=== PATIENT | female | born 1935 | race Caucasian/White ===

== ENCOUNTER 2017-09-23 13:07 | Emergency (ER) | payer MEDICARE ==
[~2017-09-23] VITALS: Ht 167.6 cm; Wt 54.4 kg
--- NOTE | 2017-09-23 13:51 | RAD ---
EXAM: Head CT without contrast. HISTORY: Confusion. TECHNIQUE: Computed tomographic images of the head were obtained without contrast. *One or more of the following individualized dose reduction techniques were utilized for this examination: 1. Automated exposure control. 2. Adjustment of the mA and/or kV according to patient size. 3. Use of iterative reconstruction technique. COMPARISON: None. FINDINGS: There is no acute or subacute extra-axial or intraparenchymal hemorrhage. There is no mass effect or midline shift. There is no hydrocephalus. There are areas of decreased attenuation within the cerebral white matter, nonspecific and likely related to chronic small vessel disease. The visualized portions of the orbits, paranasal sinuses and mastoid air cells are unremarkable. No suspicious calvarial lesion is seen. IMPRESSION: No acute intracranial findings. Electronically signed by: Dariela Ashraf MD (09/23/2017 1:48 PM) [place] [id number]
--- NOTE | 2017-09-23 13:53 | RAD ---
PORTABLE CHEST 1V History: CONFUSED EARLIER NOW CORRECT MENTAL STATUS. Comparison: None. Findings: Cardiomediastinal silhouette is within normal limits. No focal airspace consolidation. No pneumothorax identified. No evidence of pleural effusion. Impression: No evidence of active disease in the chest. Electronically signed by: Balbir Gould MD (09/23/2017 1:49 PM) [id number]
[2017-09-23 14:09] LABS: BASO % 1 % (0-3); EOS # 0.1 x10^3/uL (0.0-0.7); EOS % 3 % (0-3); HEMATOCRIT 39.5 % (36.0-47.0); HEMOGLOBIN 13.5 g/dL (12.0-15.5); LYMPH # 1.3 x10^3/uL (1.0-4.8); LYMPH % 34 % (24-48); MEAN CORPUSCULAR HEMOGLOBIN 33 pg (25-35); MEAN CORPUSCULAR HGB CONC 34 g/dL (31-37); MEAN CORPUSCULAR VOLUME 98 fL (79-100); MONO # 0.3 x10^3/uL (0.0-1.1); MONO % 8 % (0-9); NEUT # 2.1 x10^3uL (1.8-7.7); NEUT % 54 % (31-73); PLATELET COUNT 201 x10^3/uL (140-400); RED BLOOD COUNT 4.04 x10^6/uL (3.50-5.40); RED CELL DISTRIBUTION WIDTH 13.5 % (11.5-14.5); WHITE BLOOD COUNT 3.8 x10^3/uL (4.0-11.0)
[2017-09-23 14:33] LABS: ALBUMIN 4.1 g/dL (3.4-5.0); ALBUMIN/GLOBULIN RATIO 1.2 (1.0-1.7); CALCIUM 9.7 mg/dL (8.5-10.1); CREATININE 0.7 mg/dL (0.6-1.0); GFR 80.3; MAGNESIUM 2.1 mg/dL (1.8-2.4); POTASSIUM 3.9 mmol/L (3.5-5.1); TOTAL BILIRUBIN 0.4 mg/dL (0.2-1.0); TOTAL PROTEIN 7.4 g/dL (6.4-8.2)
--- NOTE | 2017-09-23 14:35 | EKG ---
[address] [address] Test Date: 2017-09-23 Test Time: 13:24:55 Pat Name: АЛЕКСАНДР EARL Department: Room: Gender: F [employer] C[employer] Operator: : [id number] Requested By: BRUCE KIM Order Number: [id number] Reading MD: Ezio Mccarty MD Measurements Intervals [place] Rate: 68 P: 22 AR: 188 QRS: 6 QRSD: 78 T: 26 QT: 390 QTc: 419 Interpretive Statements SINUS RHYTHM Electronically Signed On 09-27-2017 17:12:31 [employer] RECOVERY OPERATOR by Ezio Mccarty MD
[2017-09-23 14:44] LABS: BACTERIA,URINE 0 /HPF (0-FEW); BILIRUBIN,URINE NEG (NEG); CLARITY,URINE CLEAR; COLOR,URINE YELLOW; GLUCOSE,URINE NEG (NEG); NITRITE,URINE NEG (NEG); RBC,URINE 0 /HPF (0-2); SQUAMOUS EPITHELIAL CELL,UR OCC /LPF; UROBILINOGEN,URINE 0.2 mg/dL (0.2 mg/dL); WBC,URINE 0 /HPF (0-4)
[2017-09-23 15:04] VITALS: BP 127/76
[2017-09-23] MEDS ORDERED: ASPIRIN 81 MG TAB.CHEW ONE (15:06)
--- NOTE | 2017-09-23 15:08 | PHYS DOC ---
Past History Past Medical History: No Pertinent History Smoking: Non-smoker Alcohol Use: None Drug Use: None Adult General Chief Complaint Chief Complaint: ALTERED MENTAL STATUS HPI HPI 82-year-old female patient with a medical problem states at 12:15 she went to bleeding and looking for her friend but was not able to remember her name or anything else that episodes last about 20 minutes. Patient states she had the same problem 10 years ago and diagnosed with transient global amnesia last for longer time. Patient states she feels like her usual condition now. Patient denies chest pain, shortness of breath, focal neuro deficit, headache, recent illness. Review of Systems Review of Systems Constitutional: Denies fever or chills [] Eyes: Denies change in visual acuity, redness, or eye pain [] HENT: Denies nasal congestion or sore throat [] Respiratory: Denies cough or shortness of breath [] Cardiovascular: No additional information not addressed in HPI [] GI: Denies abdominal pain, nausea, vomiting, bloody stools or diarrhea [] : Denies dysuria or hematuria [] Musculoskeletal: Denies back pain or joint pain [] Integument: Denies rash or skin lesions [] Neurologic: Denies headache, focal weakness or sensory changes [] Endocrine: Denies polyuria or polydipsia [] All other systems were reviewed and found to be within normal limits, except as documented in this note. Current Medications Current Medications Current Medications Medications (Trade) Dose Ordered Sig/Kimmy Start Time Stop Time Status Last Admin Dose Admin Aspirin (Children'S Aspirin) 81 mg 1X ONCE 09/23/17 15:15 09/23/17 15:16 UNV Allergies Allergies Allergies Coded Allergies Type Severity Reaction Last Updated Verified Penicillins Allergy Intermediate rash 09/23/17 Yes Physical Exam Physical Exam Constitutional: Well developed, well nourished, no acute distress, non-toxic appearance. [] HENT: Normocephalic, atraumatic, bilateral external ears normal, oropharynx moist, no oral exudates, nose normal. [] Eyes: PERRLA, EOMI, conjunctiva normal, no discharge. [] Neck: Normal range of motion, no tenderness, supple, no stridor. [] Cardiovascular:Heart rate regular rhythm, no murmur [] Lungs & Thorax: Bilateral breath sounds clear to auscultation [] Abdomen: Bowel sounds normal, soft, no tenderness, no masses, no pulsatile masses. [] Skin: Warm, dry, no erythema, no rash. [] Back: No tenderness, no CVA tenderness. [] Extremities: No tenderness, no cyanosis, no clubbing, ROM intact, no edema. [] Neurologic: Alert and oriented X 3, normal motor function, normal sensory function, no focal deficits noted. [] Psychologic: Affect normal, judgement normal, mood normal. [] Current Patient Data Lab Results Laboratory Tests Test 09/23/17 13:57 09/23/17 14:15 White Blood Count 3.8 x10^3/uL (4.0-11.0) L Red Blood Count 4.04 x10^6/uL (3.50-5.40) Hemoglobin 13.5 g/dL (12.0-15.5) Hematocrit 39.5 % (36.0-47.0) Mean Corpuscular Volume 98 fL (79-100) Mean Corpuscular Hemoglobin 33 pg (25-35) Mean Corpuscular Hemoglobin Concent 34 g/dL (31-37) Red Cell Distribution Width 13.5 % (11.5-14.5) Platelet Count 201 x10^3/uL (140-400) Neutrophils (%) (Auto) 54 % (31-73) Lymphocytes (%) (Auto) 34 % (24-48) Monocytes (%) (Auto) 8 % (0-9) Eosinophils (%) (Auto) 3 % (0-3) Basophils (%) (Auto) 1 % (0-3) Neutrophils # (Auto) 2.1 x10^3uL (1.8-7.7) Lymphocytes # (Auto) 1.3 x10^3/uL (1.0-4.8) Monocytes # (Auto) 0.3 x10^3/uL (0.0-1.1) Eosinophils # (Auto) 0.1 x10^3/uL (0.0-0.7) Basophils # (Auto) 0.0 x10^3/uL (0.0-0.2) Prothrombin Time 9.9 SEC (9.4-11.4) Prothrombin Time INR 1.0 (0.9-1.1) Sodium Level 139 mmol/L (136-145) Potassium Level 3.9 mmol/L (3.5-5.1) Chloride Level 103 mmol/L (98-107) Carbon Dioxide Level 28 mmol/L (21-32) Anion Gap 8 (6-14) Blood Urea Nitrogen 14 mg/dL (7-20) Creatinine 0.7 mg/dL (0.6-1.0) Estimated GFR (Cockcroft-Gault) 80.3 BUN/Creatinine Ratio 20 (6-20) Glucose Level 95 mg/dL (70-99) Calcium Level 9.7 mg/dL (8.5-10.1) Magnesium Level 2.1 mg/dL (1.8-2.4) Total Bilirubin 0.4 mg/dL (0.2-1.0) Aspartate Amino Transferase (AST) 17 U/L (15-37) Alanine Aminotransferase (ALT) 19 U/L (14-59) Alkaline Phosphatase 37 U/L (46-116) L Creatine Kinase 147 U/L (26-192) Creatine Kinase MB (Mass) 1.7 ng/mL (0.0-3.6) Creatine Kinase MB Relative Index 1.2 % (0-4) Troponin I Quantitative < 0.017 ng/mL (0-0.055) Total Protein 7.4 g/dL (6.4-8.2) Albumin 4.1 g/dL (3.4-5.0) Albumin/Globulin Ratio 1.2 (1.0-1.7) Urine Collection Type Unknown Urine Color Yellow Urine Clarity Clear Urine pH 7.0 Urine Specific [place] 1.010 Urine Protein Neg (NEG-TRACE) Urine Glucose (UA) Neg mg/dL (NEG) Urine Ketones (Stick) Neg mg/dL (NEG) Urine Blood Neg (NEG) Urine Nitrite Neg (NEG) Urine Bilirubin Neg (NEG) Urine Urobilinogen Dipstick 0.2 mg/dL (0.2 mg/dL) Urine Leukocyte Esterase Neg (NEG) Urine RBC 0 /HPF (0-2) Urine WBC 0 /HPF (0-4) Urine Squamous Epithelial Cells Occ /LPF Urine Bacteria 0 /HPF (0-FEW) EKG EKG [EKG interpreted by me. EKG at 1324 showed sinus rhythm at rate of [address] and T wave abnormality] Radiology/Procedures Radiology/Procedures [] Course & Med Decision Making Course & Med Decision Making Pertinent Labs and Imaging studies reviewed. (See chart for details) Evaluation of patient in ER showed 82-year-old female patient with one episode of amnesia for 20 minutes that resolved spontaneously. Patient had unremarkable physical exam and ambulated without problem. CT head and neck and labs was unremarkable. Plan discharge patient home with diagnosis of transient global amnesia area patient had 1 dose of aspirin in ER and instructed to follow with her primary care physician in 1-2 days Dragon Disclaimer Dragon Disclaimer This electronic medical record was generated, in whole or in part, using a voice recognition dictation system. Departure Departure: Impression: Primary Impression: Transient global amnesia Disposition: HOME, SELF-CARE (At 1507) Condition: IMPROVED Referrals: RAY THOMAS DO (PCP) Patient Instructions: Transient Global Amnesia Additional Instructions: Follow-up with your primary care physician in one or 2 days BRUCE KIM MD Sep 23, 2017 15:08
[2017-09-23] MEDS ORDERED: ASPIRIN 81 MG TAB.CHEW PO ONE (15:15)
== END 2017-09-23 15:09 | disposition home or self-care (01) ==
LOC: ER 13:07
DX: G45.4 Transient global amnesia (principal); Z88.0 Allergy status to penicillin
CPT/HCPCS: 36415; 70450; 71045; 80053; 81001; 82553; 83735; 84484; 85025; 85610; 93005; 99285-25